=== PATIENT | female | born 1980 | race Caucasian/White ===

== ENCOUNTER 2022-04-23 13:08 | Outpatient (CLI) | payer BC, SELFPAY ==
[2022-04-23 21:57] LABS: Cholesterol* 211 mg/dL (90-199); Glucose* 86 mg/dL (60-115); HDL Cholesterol* 82 mg/dL (>=50); LDL Cholesterol Calculated 121 mg/dL (<100); Triglycerides* 42 mg/dL (40-149)
== END 2022-04-23 13:09 | disposition home or self-care (01) ==
PROVIDERS: PCP Emergency Medicine; Visit Provider Emergency Medicine
DX: Z01.419 Encounter for gynecological examination (general) (routine) without abnormal findings (principal); Z13.1 Encounter for screening for diabetes mellitus; Z13.6 Encounter for screening for cardiovascular disorders
CPT/HCPCS: 80061; 82947

== ENCOUNTER 2022-07-01 12:27 | Outpatient (CLI) | payer BC, SELFPAY ==
--- NOTE | 2022-07-01 13:00 | CRLHL7_ITS ---
For Patients: As a result of the Cures Act, medical imaging exams and procedure reports are released immediately into your electronic medical record. You may view this report before your referring provider. If you have questions, please contact your health care provider. BILATERAL SCREENING MAMMOGRAM WITH COMPUTER-AIDED DETECTION AND TOMOSYNTHESIS TECHNIQUE: CC and MLO views were obtained. These mammographic images have been obtained using full-field digital technique. These mammographic images were interpreted with the benefit of computer-aided detection. Breast Tomosynthesis was used in this interpretation. COMPARISON FILM: 06/28/21, 06/19/20. FINDINGS: There are scattered areas of fibroglandular density IMPRESSION: There is no radiographic evidence for malignancy. ASSESSMENT: BI-RADS Category 1: Negative RECOMMENDATION: Routine screening mammogram in 1 year. A lay language report of this examination will be provided to the patient. Leonid Barraza M.D. Diagnostic Radiologist [email or web address] Transcribed: 1:39 p.mZe renteria/Dictated by: Leonid Barraza MD @ 07/02/2022 9:41:00 AM (Electronically Signed)
== END 2022-07-01 12:28 | disposition home or self-care (01) ==
PROVIDERS: PCP Emergency Medicine; Visit Provider Emergency Medicine
DX: Z12.31 Encounter for screening mammogram for malignant neoplasm of breast (principal)
CPT/HCPCS: 77063; 77067